=== PATIENT | male | born 1985 | race African-American/Black ===

== ENCOUNTER 2017-01-06 00:12 | Emergency (ER) | payer SELFPAY ==
[~2017-01-06] VITALS: Ht 172.7 cm; Wt 105.0 kg
[~2017-01-06 00:12] MED LIST: CYCL-36 PO; DICL-86 PO; Z.0.NO CURRENT MEDS
[2017-01-06 00:15] VITALS: BP 133/72; PULSE 87; RESP 16; TEMP 98.8; O2SAT 97
--- NOTE | 2017-01-06 01:56 | PD ---
HPI Chief Complaint: Skin Problem Time Seen by Provider: 01:52 Travel History International Travel<30 days: No Contact w/Intl Traveler<30days: No Traveled to known affect area: No History of Present Illness HPI Patient comes in for evaluation of possible abscess to his left posterior thigh that he first noticed approximately a week ago. Patient states he had something similar previously, which he allowed to come to a head then he popped it and went away. Patient states 3 days ago he tried popping it and managed to evacuate some pus out, but he feels is getting slightly worse. Abscess continues to drain. Patient continues to squeeze it to get pus out of it. Denies any fevers. Patient reports pain around the site of a abscess with without radiation. Pain is worse palpation. PFSH Past Medical History Medical History: Denies Significant Hx Diminished Hearing: No Immunizations Current: Yes Social History Alcohol Use: No Tobacco Use: No Substance Use: Yes (marijuana) Allergies-Medications (Allergen,Severity, Reaction): Coded Allergies: No Known Allergies (Verified , 01/06/17) Reported Meds & Prescriptions Reported Meds & Active Scripts Active Keflex (Cephalexin) 500 Mg Cap 500 Mg PO Q8H Bactrim DS (Sulfamethoxazole-Trimethoprim) 800-160 Mg Tab 1 Tab PO BID Flexeril (Cyclobenzaprine HCl) 10 Mg Tab 10 Mg PO TID Voltaren (Diclofenac Sodium) 75 Mg Tabec 75 Mg PO BID Reported No Current Meds (Miscellaneous Medication) [facility] Review of Systems Except as stated in HPI: all other systems reviewed are Neg Physical Exam Narrative GENERAL: Well-developed, well nourished, in no acute distress, and non-ill appearing. SKIN: Warm and dry. Abscess noted left posterior/medial thigh proximally with scant amount purulent drainage noted. Is indurated without fluctuation. There is no crepitus. It is afebrile mildly tender. HEAD: Atraumatic. Normocephalic. EYES: Pupils equal and round. EOMI. No scleral icterus. No injection or drainage. ENT: No nasal bleeding or discharge. Mucous membranes pink and moist. NECK: Trachea midline. Supple. No nuclear rigidity. RESPIRATORY: No accessory muscle use. No respiratory distress. MUSCULOSKELETAL: No obvious deformities. No clubbing. No cyanosis. No edema. Full range of motion. NEUROLOGICAL: Awake and alert. No obvious cranial nerve deficits. Motor grossly within normal limits. Normal speech. PSYCHIATRIC: Appropriate mood and affect; insight and judgment normal. Data Data Last Documented VS Vital Signs Date Time Temp Pulse Resp B/P Pulse Ox O2 Delivery O2 Flow Rate FiO2 01/06/17 00:15 98.8 87 16 133/72 97 Room Air Orders Wound Culture And Gram Stain (01/06/17 01:50) Sulfamet-Trimeth Ds 800-160 Mg (Bactrim (01/06/17 02:00) Cephalexin (Keflex) (01/06/17 02:00) MDM Medical Decision Making Medical Screen Exam Complete: Yes Emergency Medical Condition: Yes Differential Diagnosis Abscess, cellulitis, folliculitis, Jina's, other Narrative Course The patient has no evidence of significant cellulitis. There is no evidence of necrotizing fasciitis/ Forneys at this time. The patient will be discharged on antibiotics. The patient was given signs and symptoms warnings for worsening infection, such as spreading of redness, increasing pain, and/or swelling, associated heat, or fever or feels worse, and instructed to return immediately if these signs or symptoms worsen. The patient is to return in 2 days for recheck. Sooner if worsens or as needed. The patient agrees with plan. Patient in no obvious distress upon re-evaluation. Patient was asked if they wanted to speak to my attending, which the patient did not wish to do at this time. Any questions/concerns in reference to patient diagnosis/condition discussed and clarified prior to patient's discharge. Reinforced sheer importance of close follow up with patient's primary physician or primary care clinic. Instructed patient to return to ED immediately, if symptoms return/ worsen. Pt showed understanding of above instructions. Further instructions and recommendations were detailed in discharge paperwork. Pt ambulated without difficulty out of ED at discharge. Diagnosis Primary Impression: Abscess Patient Instructions: Abscess (ED), Abscess Follow-up (ED), General Instructions Additional Instructions: Follow-up with your primary care physician or return here in 2 days for recheck. Take all medication as prescribed. Apply warm compresses to affected area multiple times throughout the day to continue to facilitate drainage. Keep wound dry and clean as possible using soap and water. Use [id number] Tylenol and/or ibuprofen as needed for pain. Follow instructions on the packaging. Return to the emergency department if symptoms get worse. Med/Other Pt SpecificInfo: Prescription(s) given Scripts Cephalexin (Keflex)500 Mg [id number] Mg PO Q8H #30 CAP Ref 0 Prov:Abdulaziz Coulter MD 01/06/17 Sulfamethoxazole-Trimethoprim (Bactrim DS)800-160 Mg Tab1 Tab PO BID #20 TAB Ref 0 Prov:Abdulaziz Coulter MD 01/06/17 Disposition: 01 DISCHARGE HOME Condition: Stable Jarrett Hayward Jan 06, 2017 01:56
[2017-01-06] MEDS ORDERED: BACT800T5 PO (01:57)
[2017-01-06] MEDS ORDERED: CEPH-460 PO (01:57)
[2017-01-06] MEDS ORDERED: CEPHALEXIN MONOHYDRATE 500 MG CAP PO ONE (02:00)
[2017-01-06] MEDS ORDERED: SULFAMETHOXAZOLE-TRIMETHOPRIM DS 800-160 MG TAB PO ONE (02:00)
== END 2017-01-06 04:20 | disposition home or self-care (01) ==
LOC: NEPB 00:12
DX: L02.416 Cutaneous abscess of left lower limb (principal); B95.61 Methicillin susceptible Staphylococcus aureus infection as the cause of diseases classified elsewhere
CPT/HCPCS: 86403; 87070; 87186; 99283